=== PATIENT | female | born 1990 | race Caucasian/White ===

== ENCOUNTER 2016-10-02 20:06 | Emergency (ER) | payer MEDICAID ==
[~2016-10-02] VITALS: Ht 160 cm; Wt 53.2 kg
[~2016-10-02 20:06] MED LIST: GOOD NEIGHBOR200 M1 PO; PRENATAL 19 TA1 EACH PO
[2016-10-02] MEDS ORDERED: ATIVAN0.5 MG (20:15)
[2016-10-02 21:28] VITALS: BP 107/62
== END 2016-10-02 21:00 | disposition home or self-care (01) ==
LOC: ED 20:06
DX: T81.89XA Other complications of procedures, not elsewhere classified, initial encounter (principal); R10.33 Periumbilical pain